=== PATIENT | male | born 1955 | race Caucasian/White ===

== ENCOUNTER 2022-01-22 11:57 | Emergency (ER) | payer MEDICARE, SELFPAY ==
[2022-01-22 12:09] VITALS: BP 121/100; PULSE 109; RESP 20; TEMP 37.1; O2SAT 98
--- NOTE | 2022-01-22 12:58 | ED.SKABFB ---
HPI - Skin/Abscess/Foreign Bdy General Chief complaint: Skin/Abscess/Foreign Body Stated complaint: left leg and achey cough Time Seen by Provider: 01/22/22 12:50 Source: patient, RN notes reviewed and old records reviewed Mode of arrival: ambulatory Limitations: no limitations History of Present Illness HPI narrative: 66-year-old male who presents to [facility] with complaints left lower leg pain, redness and swelling to his left lower leg for the past 2 weeks which has increased in redness swelling and discomfort in the pat few days. He initially hit his leg on bleacher with a [id number] wound on left proximal lower leg no drainage noted,patient has been putting Silvadene ointment area. He has 12cm X10 cm area of redness nad swelling of anterior lower leg. He also reports that he got flu shot and covid vaccination 2-3 days ago and he has body aches, cough, diarrhea, and decreased appetite. MD complaint: lesion and other (cellulitis) Onset (ago): week(s) (2) Tetanus up to date: no Severity scale (1-10): 5 (to leg,8/10 generalized) Treatments prior to arrival: other (silvadene) Related Data Home Medications Medication Instructions Recorded Confirmed amlodipine 5 mg tablet 5 mg PO DAILY 01/22/22 01/22/22 apixaban 5 mg tablet (Eliquis) 5 mg PO BID 01/22/22 01/22/22 atorvastatin 40 mg tablet 40 mg PO BID 01/22/22 01/22/22 carvedilol 12.5 mg tablet 12.5 mg PO DAILY 01/22/22 01/22/22 clopidogrel 75 mg tablet 75 mg PO DAILY 01/22/22 01/22/22 cyclobenzaprine 5 mg tablet 5 mg PO TID PRN Muscle Spasm 01/22/22 01/22/22 folic acid 1 mg tablet 1 mg PO DAILY 01/22/22 01/22/22 furosemide 40 mg tablet 40 mg PO BID 01/22/22 01/22/22 losartan 50 mg tablet 50 mg PO DAILY 01/22/22 01/22/22 metformin 500 mg tablet,extended 500 mg PO DAILY 01/22/22 01/22/22 release 24 hr methotrexate sodium 2.5 mg tablet 2.5 mg PO DAILY 01/22/22 01/22/22 pantoprazole 40 mg tablet,delayed 40 mg PO DAILY 01/22/22 01/22/22 release prednisone 5 mg tablet 5 mg PO TID 01/22/22 01/22/22 tramadol 50 mg tablet 50 mg PO Q4-6H PRN Pain 01/22/22 01/22/22 Allergies Allergy/AdvReac Type Severity Reaction Status Date / Time No Known Allergies Allergy Verified 01/22/22 12:32 Review of Systems Review of Systems: CONSTITUTIONAL: Denies fever, chills, or sweats. CARDIOVASCULAR: Denies chest pain, palpitations, or edema. RESPIRATORY:Reports cough no dyspnea. GASTROINTESTINAL: Denies abdominal pain, no nausea, vomiting some diarrhea, SKIN: Reports redness and swelling. Denies purulent drainage, vesicles, bullae, numbness, pain beyond proportion MUSCULOSKELETAL: reports myalgia. NEUROLOGIC: Denies headache, numbness All systems reviewed & are unremarkable except as noted in HPI and below PMFSH Past Medical History Medical History (Updated 01/27/22 @ 11:22 by Jolly Mckeon NP) Arthritis Cellulitis, leg Diabetes Heart disease Hyperlipidemia Hypertension Surgical History Surgical History (Updated 01/27/22 @ 11:23 by Jolly Mckeon NP) H/O hernia repair Hx of heart artery stent reports 15 stents Social History Social History Smoking status: Never smoker Alcohol intake: never Comments At time of signature, agree with nursing past medical, surgical, social and family history. There is no relevant family history pertinent to the presenting complaint Exam Narrative: GENERAL: Well-appearing, well-nourished, and in no acute distress. HEAD: Normocephalic, atraumatic. EYES: PERRLA and EOMI. ENT: Nares clear, no rhinorrhea or epistaxis. Mucous membranes moist.TM's normal, throat pink with no swelling NECK: Supple.no lymphadenopathy CHEST: Clear to auscultation. No respiratory distress.SAO2 98% on room air HEART: Regular rate and rhythm. No murmur heard. Normal peripheral pulses. ABDOMEN: Soft, nontender, nondistended, normal active bowel sounds. EXTREMITIES: Normal range of motion. edema left leg SKIN: Warm, dry. Erythema, induration, tenderness, w
[2022-01-22] MEDS: TETANUS,DIPHTHERIA,AC PERTUSSIS ADULT (0.5 ML) BOOSTRIX IM (13:17)
== END 2022-01-22 13:40 | disposition home or self-care (01) ==
PROVIDERS: Emergency Provider Registered Nurse; PCP Family Medicine
DX: L03.116 Cellulitis of left lower limb (principal); L02.416 Cutaneous abscess of left lower limb; R11.2 Nausea with vomiting, unspecified; R19.7 Diarrhea, unspecified; Z79.84 Long term (current) use of oral hypoglycemic drugs; Z23 Encounter for immunization
CPT/HCPCS: 90471; 90715; 99213; G0463